=== PATIENT | male | born 1990 | race African-American/Black ===

== ENCOUNTER 2016-08-30 10:30 | Emergency (ER) | payer OTHER ==
[~2016-08-30] VITALS: Ht 182.9 cm; Wt 74.8 kg
--- NOTE | 2016-08-30 11:21 | ED UPPER/LOWER EXTREMITY COMPL ---
History of Present Illness General Chief Complaint: Lower Extremity Injury Stated Complaint: LT KNEE PAIN S/P SLIP AND FALL Source: patient Exam Limitations: no limitations Vital Signs & Intake/Output Vital Signs & Intake/Output Vital Signs Date Time Temp Pulse Resp B/P Pulse O2 O2 Flow FiO2 Ox Delivery Rate 08/30 1245 68 18 126/73 100 Room Air 08/30 1039 98.3 84 18 125/69 99 Room Air Allergies Coded Allergies: NO KNOWN ALLERGIES (01/19/12) Triage Note: C/O PAIN IN LEFT KNEE AND BACK OF HEAD, S/P FALL AT WORK. SLIPPED AND FELL IN PUDDLE AND HIT BACK OF HEAD ON CAR AT CAR WASH. UNABLE TO BEAR WEIGHT. STATE HE FELT LIGHTHEAED AT TIME OF INJURY, BUT NOT NOW. MEDICATED WITH MOTIRN 400 MG PO. Triage Nurses Notes Reviewed? yes Onset: Just prior to arrival Duration: minute(s): (30) Timing: single episode today Severity: severe Severity Numbers: 9 Pain/Injury Location: Left: Leg, Knee. Method of Injury: fall Modifying Factors: Improves With: immobilization. Worsens With: movement. HPI: Patient is a 25-year-old male presenting to the emergency department with chief complaint of left knee pain after slipping and falling at work prior travel. He reports that he slipped in a tunnel hit his head on a car door and then fell and twisted his left knee. Pain in the knee is moderate, ACHEY THROBBING, worse with range of motion. Unable to airway. Denies taking anything for pain prior to arrival. Pain radiates up the left femur. Denies any ankle pain. Denies any loss of consciousness with the head injury. No known visual changes. No nausea or vomiting. Denies any abdominal pain chest pain or shortness of breath. Denies any precipitating factors prior to the fall. He reports that he slipped on ice. No history of injury to that knee in the past. Denies any back pain and urinary incontinence or retention. No neck pain. (DARIEL PERRY) Reconcile Medications Hydrocodone/Acetaminophen (Vicodin 5-300 MG Tablet) 5 MG-300 MG TABLET 1 TAB PO Q6HR PRN pain (VENICE ORTA DO) Past History Travel History Traveled to [place] past 21 day No Medical History Any Pertinent Medical History? see below for history Neurological: NONE EENT: NONE Cardiovascular: NONE Respiratory: NONE Gastrointestinal: NONE Hepatic: NONE Renal: NONE Musculoskeletal: NONE Psychiatric: NONE Endocrine: NONE Surgical History Surgical History: non-contributory Psychosocial History What is your primary language Bengali Tobacco Use: Never used ETOH Use: occasional use Family History Hx Contributory? No (ANA PAULA HUNT,DARIEL) Review of Systems Review of Systems Constitutional: Reports: no symptoms. (ANA PAULA HUNT,DARIEL) Physical Exam Physical Exam General Appearance: well developed/nourished, no apparent distress, alert, awake , comfortable Comments: Well-developed well-nourished person in no acute distress HEENT: Pupils equally round and reactive to light and accommodation. Nose is atraumatic. Neck: Supple, no lymphadenopathy, normal range of motion without pain no C- spine tenderness. No pain to palpation over entire scalp. No palpable step-off deformities bogginess over entire scalp. Back: Nontender, no CVA tenderness. Full range of motion Cardiovascular: Regular rate and rhythms no murmurs rubs or gallops, normal JVP Respiratory: Chest nontender. No respiratory distress.breath sounds clear to auscultation bilaterally Extremity: No edema, no calf tenderness to palpation, normal and equal pulses.tenderness to palpation over the entire left patella, mild edema noted to the medial aspect of the left patella. Negative anterior and posterior drawer test. Mild tenderness to palpation over the distal femur. No obvious deformity noted. Limited range of motion of the left knee secondary to pain. Neuro: Alert oriented x3, motor sensory normal. Skin: No appreciable rash on exposed skin, skin is warm and dry. Psych: Mood and affect is normal, memory and judgment is normal. (ANA PAULA HUNT,DARIEL) Progress Differential Diagnosis: contusion, dislocation, fracture, sprain, tendon injury, minor head injury, concussion, contusion Plan of Care: Orders Procedure Date/time Status Durable Medical Equipment 08/30 1243 Active Diagnostic Imaging: Viewed by Me: Radiology Read. Discussed w/RAD: Radiology Read. Radiology Impression: PATIENT: LAURE ZENDEJAS PRESENT AGE: 25 PATIENT ACCOUNT NO: [id number] : 92 LOCATION: [facility] ORDERING PHYSICIAN: DARIEL HUNT SERVICE DATE: 08/30/16 EXAM TYPE: RAD - XRY-FEMUR, LEFT 2 VIEWS; XRY-KNEE COMPLETE LEFT EXAMINATION: LEFT FEMUR AND LEFT KNEE. CLINICAL INFORMATION: Status post fall. Pain. COMPARISON: None TECHNIQUE: AP and lateral views of the left femur were obtained. Left knee 4 views. FINDINGS: LEFT FEMUR: There is no visible fracture, periosteal elevation or soft tissue abnormality. LEFT KNEE: There is no visible acute fracture, dislocation or soft tissue abnormality. There is no abnormal suprapatellar joint effusion. IMPRESSION: Unremarkable left femur. Unremarkable left knee exam. DICTATED BY: DON PAUL MD DATE/TIME DICTATED:08/30/161222 ARTIFICIAL PEARL MAKER:SUZIE DATE/TIME TRANSCRIBED:08/30/161222 CONFIDENTIAL, DO NOT COPY WITHOUT APPROPRIATE AUTHORIZATION. <Electronically signed in Other Vendor System> SIGNED BY: DON PAUL MD 08/30/16 1228 (DARIEL PERRY) Departure Departure Time of Disposition: 1234 Disposition: HOME OR SELF CARE Condition: Stable Clinical Impression Primary Impression: Knee sprain Qualifiers: Encounter type: initial encounter Involved ligament of knee: unspecified ligament Laterality: left Qualified Code: S83.92XA - Sprain of unspecified site of left knee, initial encounter Secondary Impressions: Contusion Qualifiers: Encounter type: initial encounter Contusion area: knee Laterality: left Qualified Code: S80.02XA - Contusion of left knee, initial encounter Referrals: PATIENT HAS NO PRIMARY CARE DR (PCP/Family) FRANK LUGO,BIBIANA Lu Additional Instructions: Wear knee immobilizer for support. Use crutches for support. Rest ice and elevate knee. Return for worsening symptoms or concerns. He may need MRI of the knee for further evaluation if symptoms persist. Take Vicodin as prescribed for pain. Departure Forms: Customer Survey Employee Industrial Accident General Discharge Information Prescriptions: Current Visit Scripts Hydrocodone/Acetaminophen (Vicodin 5-300 MG Tablet) 1 TAB PO Q6HR PRN pain #10 TAB (DARIEL PERRY) PA/HEALTH PROMOTION COORDINATOR Co-Sign Statement Statement: ED Attending supervision documentation- [] I saw and evaluated the patient. I have also reviewed all the pertinent lab results and diagnostic results. I agree with the findings and the plan of care as documented in the PA's/HEALTH PROMOTION COORDINATOR's documentation. [X] I have reviewed the ED Record and agree with the PA's/HEALTH PROMOTION COORDINATOR's documentation. [] Additions or exceptions (if any) to the PAs/HEALTH PROMOTION COORDINATOR's note and plan are summarized below: [] (YOU MCGRATH,VENICE Rand) Procedures Splinting Location: left knee Manual Alignment Performed: No Pre-Made Type: velcro Splint Applied By: splint applied by other (nursing) Pre-Proc Neuro Vasc Exam: normal Post-Proc Neuro Vasc Exam: normal Progress: procedure well (ANA PAULA HUNT,DARIEL)
--- NOTE | 2016-08-30 12:28 | RADIOLOGY REPORT ---
EXAMINATION: LEFT FEMUR AND LEFT KNEE. CLINICAL INFORMATION: Status post fall. Pain. COMPARISON: None TECHNIQUE: AP and lateral views of the left femur were obtained. Left knee 4 views. FINDINGS: LEFT FEMUR: There is no visible fracture, periosteal elevation or soft tissue abnormality. LEFT KNEE: There is no visible acute fracture, dislocation or soft tissue abnormality. There is no abnormal suprapatellar joint effusion. IMPRESSION: Unremarkable left femur. Unremarkable left knee exam.
[2016-08-30] MEDS ORDERED: VICODIN 5-3001 EACH PO (12:36)
[2016-08-30 12:45] VITALS: BP 126/73
== END 2016-08-30 12:50 ==
LOC: ERH 10:30
DX: S83.92XA Sprain of unspecified site of left knee, initial encounter (principal); S80.02XA Contusion of left knee, initial encounter; W01.0XXA Fall on same level from slipping, tripping and stumbling without subsequent striking against object, initial encounter; Y92.89 Other specified places as the place of occurrence of the external cause; Y93.9 Activity, unspecified
CPT/HCPCS: 73552; 73562-LT